=== PATIENT | male | born 1970 | race Caucasian/White ===

== ENCOUNTER 2025-08-27 17:22 | Emergency (ER) | payer BC, SELFPAY ==
[2025-08-27 17:32] VITALS: BP 136/75; PULSE 65; RESP 16; TEMP 36.7; O2SAT 97; BMI 26.2
--- NOTE | 2025-08-27 18:12 | EDNOTE_ITS ---
Upper Extremity Injury RME/HPI General Chief Complaint: Hand/Wrist Problems Stated Complaint: SPLINTER IN L) PALM 7 DAYS AGO Time Seen by Provider: 08/27/25 17:45 Arrival date/time: 08/27/25 17:22 RME / HPI RME / HPI narrative: 54-year-old male patient with no past medical history, came in for evaluation regarding swelling, left second metacarpophalangeal area palmar aspect, patient told me that he had wood splinter about 7 days ago was able to remove it completely, but since then he noticed some swelling. With mild redness. Able to bend and extend index finger without any limitation. Patient tried to poke it with a utility knife, and pus came out. Patient denies any fever denies any other complaints. Tetanus vaccination is unknown. Related Data Previous Rx's ?Medication ?Instructions ?Recorded ibuprofen 600 mg tablet 600 mg PO Q8HR PRN PAIN #30 tabs 04/15/17 clindamycin HCl 300 mg capsule 300 mg PO TID #21 caps 08/27/25 (Cleocin HCl) ibuprofen 800 mg tablet 800 mg PO Q8H PRN pain #30 t abs 08/27/25 Allergies Allergy/AdvReac Type Severity Reaction Status Date / Time No Known Allergies Allergy Verified 08/27/25 17:25 Review of Systems Review of Systems Narrative Review of Systems: Review of system reviewed and within normal limits except mentioned in HPI ED Exam Narrative Physical exam: VITAL SIGNS: Reviewed. GENERAL APPEARANCE: Alert and interactive, follows commands, no acute distress, HEAD AND FACE: Non-traumatic. ENT: PERRL, pink conjunctivitis, eyelid no trauma, Mucous membrane moist. NECK: Supple, nontender, no nuchal rigidity. RECTAL: Deferred. GENITAL: Deferred. NEUROLOGICAL: Gross motor function intact sensory function intact, Appropriate for age. MUSCULOSKELETAL: low back nontender, full range of motion. EXTREMITIES: +1x1 cm swelling, fluctuant, left second metacarpophalangeal area, palmar aspect, nontender mild erythema, full range of motion. SKIN: Color pink, dry, no rash, no lacerations, no abrasions, no contusions. LYMPHATICS: Deferred. Course Quality Measures none Orders Category Date Time Status Clindamycin [Cleocin] Med 08/27/25 18:06 Discontinued 300 mg PO X1 ONE Ibuprofen Tab [Motrin Tab] Med 08/27/25 18:06 Discontinued 800 mg PO X1 ONE TET,DIP/PERT AC (Adult)-Tdap [Boostrix Adult (Tdap) Med 08/27/25 18:06 Discontinued Vacc] 0.5 ml IMI .ONCE ONE Vital Signs Vital signs: Vital Signs Temperature 98.0 F 08/27/25 17:32 Pulse Rate 65 08/27/25 17:32 Respiratory Rate 16 08/27/25 17:32 Blood Pressure 136/75 H 08/27/25 17:32 Pulse Oximetry (%) 97 08/27/25 17:32 Oxygen Delivery Method Room Air 08/27/25 17:32 Extremity Injury MDM Narrative MDM Narrative:: 54-year-old male patient with no past medical history, came in for evaluation regarding swelling, left second metacarpophalangeal area palmar aspect, patient told me that he had wood splinter about 7 days ago was able to remove it completely, but since then he noticed some swelling. With mild redness. Able to bend and extend index finger without any limitation. Patient tried to poke it with a utility knife, and pus came out. Patient denies any fever denies any other complaints. Tetanus vaccination is unknown. I did diagnostic aspiration, came out with pus. Incision and drainage was advised and patient consented for the procedure verbally. Patient received clindamycin, Boostrix, Motrin patient tolerated the procedure well. Patient data External records reviewed:: None Clinical information provided by:: patient Social determinants that could affect healthcare access:: none Patient has the following chronic illnesses:: None How is presenting disease/condition affected by chronic disease/condition?: exacerbated by Evaluation data The following diagnostics were reviewed and interpreted by me:: other (specify) (None) Lab and/or radiology exams considered but not ordered:: None Interpretation Summary: None Medications / Prescriptions Medications or Prescriptions considered but not ordered:: None Medication administrations:: Medication Administration History Discontinued Medications Clindamycin HCl (Clindamycin 150 Mg Capsule) 300 mg PO X1 ONE Stop: 08/27/25 18:07 Diphtheria/Tetanus/Acell Pertussis (Diphth,Pertuss(Acell),Tet Vac 0.5 Ml Syr- Adult) 0.5 ml IMi .ONCE ONE Stop: 08/27/25 18:07 Ibuprofen (Ibuprofen Tab 400 Mg Tablet) 800 mg PO X1 ONE Stop: 08/27/25 18:07 Clindamycin Boostrix and Motrin Consultations Consultation(s) initiated? (list below): No Diagnosis Upper Extremity Injury Differential Diagnosis: other ( abscess hand, cellulitis hand) Most likely diagnosis given after review of the tests above:: abscess hand Admission Indicated Admission indicated?: not indicated Admission Request Was there a request for admission?: No Disposition Plan Disposition Plan: Discharge Discharge Attestation Discharge Attestation: The patient and all family members were given an opportunity to ask questions and understood the discharge instructions. Discharge instructions specifically effects, indications for sooner follow up or return to the emergency department, and the expected course of current diagnosis. Patient condition: Stable Discharge Plan Plan Patient Disposition: HOME (Self Care) Discharge Disposition comment: Stable Prescriptions/Referrals Prescriptions/Med Rec: New clindamycin HCl [Cleocin HCl] 300 mg capsule 300 mg PO TID Qty: 21 0RF ibuprofen 800 mg tablet 800 mg PO Q8H PRN (Reason: pain) Qty: 30 0RF No Action ibuprofen 600 MG tablet 600 mg PO Q8HR PRN (Reason: PAIN) Qty: 30 0RF Problem List Clinical Impression: Abscess of hand Patient/Caregiver Discharge Instructions Discharge Activity: activity as tolerated Education Materials: ED Abscess, Incision And Drainage Additional Instructions: Thank you for the opportunity for serving you today. You are stable for discharged . You are advised to: Follow-up with your PCP in 1 to 2 days Increase oral fluids Take medication as prescribed Daily dressing with bacitracin as needed. Your wound will heal on its own. Return to emergency room for worsening of symptoms Print Language: Tajik Stand Alone Forms: [employer] Award Info., Patient Portal Info Letter JANENE/YOLANDA Supervising Physician JANENE/YOLANDA Supervising Physician: MD Roland
[2025-08-27] MEDS: IBUPROFEN TAB 400 MG TABLET 800 MG PO (18:20)
[2025-08-27] MEDS: DIPHTH,PERTUSS(ACELL),TET VAC 0.5 ML SYR- ADULT IMi (18:20)
[2025-08-27] MEDS: CLINDAMYCIN 150 MG CAPSULE 300 MG PO (18:21)
== END 2025-08-27 18:29 | disposition home or self-care (01) ==
PROVIDERS: Emergency Provider Emergency Medicine
DX: L02.512 Cutaneous abscess of left hand (principal)
CPT/HCPCS: 26010; 90715; 99282; A9270

== ENCOUNTER 2025-10-23 12:52 | Emergency (ER) | payer BC, SELFPAY ==
[2025-10-23 13:11] VITALS: BP 132/67; PULSE 87; RESP 20; TEMP 37.8; O2SAT 97; BMI 26.6
--- NOTE | 2025-10-23 13:32 | PD.EDADULT ---
ED General RME/HPI General Chief complaint: Nausea/Vomiting/Diarrhea Stated complaint: Diarrhea with blood X 1 week Time Seen by Provider: 10/23/25 13:22 Arrival date/time: 10/23/25 12:52 CC: Abdominal bloating with mucousy stools HPI patient has had intermittent mucousy stool and formed stools since October 11. Patient states 2 days ago he had a bloody stool. Patient denies fever abdominal pain shortness of breath difficulty breathing nausea or vomiting. Patient has been taking an [id number] psyllium supplement every Saturday for several weeks up until October 11 at which time he stopped. Patient had no BM yesterday or today and today took Ex-Lax. Patient is awake alert oriented nontoxic-appearing not in any acute distress. No antibiotics taken in the last 3 months Related Data Previous Rx's ?Medication ?Instructions ?Recorded ibuprofen 600 mg tablet 600 mg PO Q8HR PRN PAIN #30 tabs 04/15/17 clindamycin HCl 300 mg capsule 300 mg PO TID #21 caps 08/27/25 (Cleocin HCl) ibuprofen 800 mg tablet 800 mg PO Q8H PRN pain #30 tabs 08/27/25 Allergies Allergy/AdvReac Type Severity Reaction Status Date / Time No Known Allergies Allergy Verified 10/23/25 12:57 Review of Systems Review of Systems Narrative Review of Systems: GEN: No fever, no chills, no weight loss EYES: No discharge, no visual changes, no pain HEENT: No ear pain, no congestion, no sore throat PULM: No shortness of breath, no cough, no congestion CV: No chest pain, no dyspnea on exertion, no palpitations GI: No nausea, no vomiting, no diarrhea, no pain, no constipation, + mucus stool : No frequency, no urgency, no dysuria MUSC/SKEL: No joint pain, no back pain SKIN: No rash PSYCH: No hallucinations, no depression HEME/LYMPH: No easy bleeding or bruising tendencies NEURO: No weakness, no headache Past Medical History Social History SMOKING STATUS: Never smoker ED Exam Narrative Physical exam: [General: Not in any acute distress Head normocephalic HEENT: Within acceptable limits Neck is supple nontender Chest equal chest rise nontender to palpation Respiratory: Clear to auscultation no wheezes crackles or rubs CV: Rate rhythm is regular no murmurs rubs or clicks Abdomen is soft nontender in all 4 quadrants, no masses positive bowel sounds all 4 quadrants Back: No CVA tenderness no spinous process tenderness from cervical spine thoracic and lumbar spine Skin: Intact no petechiae rash induration ulceration or crepitus Extremities: Moving all extremity against resistance cap refill less than 2 seconds neurosensory intact Neuro: Awake alert oriented x3 Glascow coma 15 no focal deficits] Course Course Course Narrative: X-ray shows a large amount of stool in the abdomen. The patient gives a half a bottle of magnesium citrate, and had a mucousy discharge with 1 small bolus of stool. At this time the patient is awake alert oriented I see no other acute finding requires emergent or immediate intervention we will discharge the patient home to follow-up with primary care provider or return here in the next couple of days. Quality Measures none Orders Category Date Time Status Insert IV NOW Care 10/23/25 13:53 Active XR abdomen series w chest 1V Stat Exams 10/23/25 13:34 Completed B-Type Natriuretic Peptide Stat Lab 10/23/25 13:47 Completed CBC Stat Lab 10/23/25 13:47 Completed Comprehensive Metabolic Panel Stat Lab 10/23/25 13:47 Completed Drug Screen,Urine Stat Lab 10/23/25 15:30 Completed Lipase Stat Lab 10/23/25 13:47 Completed Magnesium Stat Lab 10/23/25 13:47 Completed Partial Thromboplastin Time Stat Lab 10/23/25 13:47 Completed Prothrombin Time with INR Stat Lab 10/23/25 13:47 Completed Urinalysis, C/S if Indicated Stat Lab 10/23/25 15:30 Completed Acetaminophen Tab [Tylenol Tab] Med 10/23/25 15:44 Discontinued 650 mg PO X1 ONE Magnesium Citrate Liqd [Citrate of Magnesia Liqd] Med 10/23/25 15:15 Discontinued 150 ml PO X1 ONE Vital Signs Vital signs: Vital Signs Temperature 100.0 F 10/23/25 13:11 Pulse Rate 87 10/23/25 13:11 Respiratory Rate 20 10/23/25 13:11 Blood Pressure 132/67 H 10/23/25 13:11 Pulse Oximetry (%) 97 10/23/25 13:11 Oxygen Delivery Method Room Air 10/23/25 13:11 Discharge Plan Plan Patient Disposition: HOME (Self Care) Patient condition on transfer: Stable Prescriptions/Referrals Prescriptions/Med Rec: No Action ibuprofen 600 MG tablet 600 mg PO Q8HR PRN (Reason: PAIN) Qty: 30 0RF clindamycin HCl [Cleocin HCl] 300 mg capsule 300 mg PO TID Qty: 21 0RF ibuprofen 800 mg tablet 800 mg PO Q8H PRN (Reason: pain) Qty: 30 0RF Referrals: Dorian Hernandez [Primary Care Provider] - In 1 week Problem List Clinical Impression: Abdominal pain Patient/Caregiver Discharge Instructions Other Activity Instructions:: Stop taking all [id number] medications that help you have a bowel movement. Focus on water intake and fiber intensive foods to help with this. Follow-up with your primary care doctor on the following Saturday or Saturday if there is a worsening of symptoms do not wait and return to the emergency room. Your red blood cell count is normal. Education Materials: Abdominal Pain Print Language: Macanese Stand Alone Forms: [employer] Award Info., Work/School Release, Patient Portal Info Letter JANENE/YOLANDA Supervising Physician PA/YOLANDA Supervising Physician: Gerardo fournier ENP [facility] Clinical Information Provided by: patient Medical Records reviewed [facility] Meds/Rx considered, not ordered None Labs/Rad/Tests considered, not ordered None Chronic Illness/Social Conditions which may negatively complicate care or outcome(s)-explain: None or not applicable EKG EKG not done Labs Labs: interpreted by [facility] Lab(s) Interpretation(s): CBC shows a mild leukocytosis of 12.0 no anemia thrombocytopenia Coags within acceptable limits CMP shows no significant electrolyte imbalances renal impairment transaminitis or T. bili elevation Lipase of 24. Imaging Imaging interpretation: interpreted by [facility] Medication Administration(s) Medication Administration History Discontinued Medications Acetaminophen (Acetaminophen 325 Mg Tablet) 650 mg PO X1 ONE Stop: 10/23/25 15:45 Last Admin: 10/23/25 16:11 Dose: 650 mg Documented By: QUANG Magnesium Citrate (Magnesium Citrate 300 Ml Btl) 150 ml PO X1 ONE Stop: 10/23/25 15:16 Last Admin: 10/23/25 15:22 Dose: 150 ml Documented By: QUANG
--- NOTE | 2025-10-23 13:34 | XR_ITS ---
EXAMINATION: Abdominal series 3 views including upright PA chest TECHNIQUE: Upright PA chest AP upright AP supine abdomen 3 views Date and time: October 23, 2025, 1404 hours INDICATIONS: Abdominal pain beginning 2 weeks ago FINDINGS: Normal heart size Lungs are clear. Abundant stool throughout the colon No obstruction No free air IMPRESSION: Large amount of stool throughout the colon
[2025-10-23 14:04] LABS: Basophils # (Auto) 0.0 Thou/mm3 (0.0-0.2); Basophils % (Auto) 0 % (0-2.5); Eosinophils # (Auto) 0.0 Thou/mm3 (0.0-0.5); Eosinophils % (Auto) 0 % (0-10); Hematocrit 41.7 % (41.0-53.0); Hemoglobin 14.0 g/dL (13.5-16.0); Immature Granulocytes Auto 0.03 Thou/mm3 (0.00-0.00); Lymphocytes # (Auto) 0.9 Thou/mm3 (1.0-4.8); Lymphocytes % (Auto) 8 % (10-50); Mean Corpuscular HGB Conc 33.6 g/dl (31.0-37.0); Mean Corpuscular Hemoglobin 30.3 pg (25.0-35.0); Mean Corpuscular Volume 90 fL (80-100); Monocytes # (Auto) 0.6 Thou/mm3 (0.0-0.8); Monocytes % (Auto) 5 % (0-12); Neutrophils # (Auto) 10.5 Thou/mm3 (1.8-7.7); Neutrophils % (Auto) 87 % (37-80); Nucleated Red Blood Cell # 0.00 Thou/mm3 (0.00-0.00); Nucleated Red Blood Cell % 0 /100 WBC (0); Platelet Count 296 Thou/mm3 (140-440); RDW Standard Deviation 41.7 fL (35.1-43.9); Red Blood Count 4.62 Miln/mm3 (4.50-5.90); White Blood Count 12.0 Thou/mm3 (3.8-10.6)
[2025-10-23 14:20] LABS: Alanine Aminotransferase 18 U/L (10-49); Albumin, Serum 4.8 gm/dL (3.5-5.0); Albumin/Globulin Ratio 1.8 (1.2-2.2); Alkaline Phosphatase 78 U/L (46-116); Anion Gap 10 (7-16); Aspartate Amino Transferase 24 U/L (0-34); BUN/Creatinine Ratio 13 Ratio (12-20); Bilirubin,Total 0.4 mg/dL (0.3-1.2); Blood Urea Nitrogen 14 mg/dL (9-23); Calcium 9.0 mg/dL (8.3-10.6); Calcium (Corrected) 9.0 mg/dL (8.5-10.1); Carbon Dioxide 26.6 mMol/L (20.0-31.0); Chloride 105 mMol/L (98-107); Creatinine (Component) 1.1 mg/dL (0.6-1.3); Estimated Creatinine Clearance 77.7 mL/min (>60); Globulin 2.6 gm/dL (2.3-3.5); Glucose 121 mg/dL (74-106); Lipase 24 U/L (12-53); Magnesium 2.1 mg/dL (1.6-2.6); Osmolality,Calculated 284 (275-295); Potassium 3.8 mMol/L (3.4-5.1); Sodium 142 mMol/L (136-145); Total Protein 7.4 gm/dL (5.7-8.2); eGFR > 60 See Note
[2025-10-23 14:26] LABS: INR 1.1 (0.9-1.3); Partial Thromboplastin Time 30.6 Seconds (22.0-36.0); Prothrombin Time 11.9 Seconds (9.0-12.2)
[2025-10-23 14:44] LABS: B-Type Natriuretic Peptide < 20 pg/mL (0-100)
[2025-10-23] MEDS: MAGNESIUM CITRATE 300 ML BTL 150 ML PO (15:22)
[2025-10-23 15:42] VITALS: BP 134/64; PULSE 90; RESP 16; TEMP 38; O2SAT 98
[2025-10-23 15:45] LABS: Collection Type, Urine Clean Catch; Squamous Epithelial Cell,Urine 0 /hpf (0-5)
[2025-10-23 15:54] LABS: Amphetamine/Methamp Scrn,U Negative (Negative); Barbiturate Screen,Urine Negative (Negative); Benzodiazepines Screen,Urine Negative (Negative); Benzoylecgonine Screen, Ur Negative (Negative); Fentanyl Screen,Urine Negative (Negative); Opiate Screen,Urine Negative (Negative); THC Screen,Urine Negative (Negative)
[2025-10-23 16:08] LABS: Bacteria,Urine Rare; Bilirubin,Urine Negative (Negative); Blood,Urine 2+ (Negative); Clarity,Urine Clear (Clear/Hazy); Color,Urine Lt-Yellow (Lt Yel-Yel); Culture Indicated,Urine Not Indicated; Glucose, Urine Negative (Negative); Ketones,Urine 2+ (Negative); Leukocyte Esterase,Urine Negative (Negative); Nitrite,Urine Negative (Negative); PH,Urine 6.0 (5.0-7.0); Protein,Urine Negative (Neg - Trace); RBC,Urine 11 /hpf (0-3); Specific Gravity,Urine 1.027 (1.001-1.035); Urobilinogen,Urine Negative mg/dL (0.0-1.0); WBC,Urine < 1 /hpf (0-5)
[2025-10-23 16:11] VITALS: TEMP 38
[2025-10-23] MEDS: ACETAMINOPHEN 325 MG TABLET 650 MG PO (16:11)
[2025-10-23 17:15] VITALS: TEMP 37.7
[2025-10-23 18:30] VITALS: BP 125/65; PULSE 67; RESP 16; TEMP 37.3; O2SAT 99
== END 2025-10-23 17:30 | disposition home or self-care (01) ==
PROVIDERS: Registered Nurse General Practice; Emergency Provider Emergency Medicine; PCP Physician Assistant
DX: R10.9 Unspecified abdominal pain (principal)
CPT/HCPCS: 36415; 74022; 80053; 80307; 81001; 83690; 83735; 83880; 85025; 85610; 85730; 99283; A9270